=== PATIENT | female | born 1975 | race Caucasian/White ===

== ENCOUNTER 2025-01-06 07:43 | Outpatient (RCR) | payer BC, SELFPAY ==
[2025-01-06 12:48] VITALS: BP 187/109; PULSE 86; TEMP 36.6; O2SAT 98
== END 2025-01-07 09:12 | disposition home or self-care (01) ==
LOC: HEMC 07:43
PROVIDERS: PCP Family Medicine; Visit Provider Internal Medicine Hematology & Oncology
DX: E83.10 Disorder of iron metabolism, unspecified (principal); M79.10 Myalgia, unspecified site
CPT/HCPCS: G0463

== ENCOUNTER 2025-01-13 07:39 | Outpatient (RCR) | payer BC, SELFPAY ==
[2025-01-13 12:00] VITALS: BP 206/117; PULSE 112; TEMP 36.4; O2SAT 97
[2025-01-13 12:42] VITALS: BP 165/100; PULSE 76; TEMP 36.6; O2SAT 97
== END 2025-01-13 13:31 | disposition home or self-care (01) ==
LOC: HEMC 07:39
PROVIDERS: PCP Family Medicine; Visit Provider Internal Medicine Hematology & Oncology
DX: E83.10 Disorder of iron metabolism, unspecified (principal)
CPT/HCPCS: 81256; 99195

== ENCOUNTER 2025-03-29 07:36 | Outpatient (RCR) | payer BC, SELFPAY | END 2025-04-14 23:59 | disposition home or self-care (01) | LOC: HEMC 07:36 | PROVIDERS: PCP Family Medicine; Visit Provider Internal Medicine Hematology & Oncology | DX: E83.10 Disorder of iron metabolism, unspecified (principal); Z87.891 Personal history of nicotine dependence; M79.10 Myalgia, unspecified site | CPT/HCPCS: G0463 ==

== ENCOUNTER 2025-09-06 08:59 | Outpatient (RCR) | payer BC, SELFPAY | END 2025-09-14 23:59 | disposition home or self-care (01) | LOC: HEMC 08:59 | PROVIDERS: PCP Family Medicine; Visit Provider Internal Medicine Hematology & Oncology | DX: E83.10 Disorder of iron metabolism, unspecified (principal) | CPT/HCPCS: G0463 ==